=== PATIENT | female | born 2000 | race Two or more races ===

== ENCOUNTER 2024-08-24 13:04 | Emergency (ER) | payer OTHER ==
[~2024-08-24] VITALS: Ht 170.2 cm; Wt 81.8 kg
[2024-08-24 13:09] VITALS: BP 135/81; PULSE 60; RESP 16; TEMP 98.4; O2SAT 100
[2024-08-24] MEDS: IBUPROFEN 600 MG TABLET PO ONE (14:25)
[2024-08-24] MEDS: ACETAMINOPHEN 500 MG TABLET PO ONE (14:26)
[2024-08-24] MEDS ORDERED: ACET-3385 PO (14:51)
[2024-08-24] MEDS ORDERED: IBUP-1492 PO (14:51)
== END 2024-08-24 15:09 | disposition home or self-care (01) ==
LOC: EMS 13:04
DX: S93.402A Sprain of unspecified ligament of left ankle, initial encounter (principal); W10.9XXA Fall (on) (from) unspecified stairs and steps, initial encounter; Y93.89 Activity, other specified; Y92.89 Other specified places as the place of occurrence of the external cause; Y99.8 Other external cause status
CPT/HCPCS: 99284; 73110-TC; 73610-TC; Z7502; Z7610